=== PATIENT | female | born 1940 | race Caucasian/White ===

== ENCOUNTER 2021-06-19 19:50 | Inpatient (IN) | payer OTHER, MEDICAID, SELFPAY ==
[~2021-06-19] VITALS: Ht 165.1 cm; Wt 64.0 kg
--- NOTE | 2021-06-19 03:50 | NUR ---
PATIENT ASSISTED TO BATHROOM PATIENT ASSISTED TO BATHROOM FOR VOID WITH WALKER AND MINIMAL ASSIST. PATIENT TOLERATED THE TRIP WELL. SHE IS REPOSITIONED BACK INTO BED FOR COMFORT. CALL LIGHT PLACED WITHIN REACH. BED IS LOCKED, ALARMED, AND AT THE LOWEST LEVEL. Addendum: 06/20/21 at 0655 by Bell Smith RN NOTE INTENDED FOR DIFFERENT TIME
[2021-06-19 20:07] VITALS: BP_SYST 109
[2021-06-19] MEDS ORDERED: VALS1TAB72 PO (20:15)
[2021-06-19] MEDS ORDERED: CIPR500T5 PO (20:16)
[2021-06-19] MEDS ORDERED: ONDA-8 TL (20:16)
--- NOTE | 2021-06-19 21:40 | NUR ---
Urine specimen collected and sent to lab.
--- NOTE | 2021-06-19 21:40 | NUR ---
Pt placed to ER bed 02 and to gown. Pt c/o vomiting x 3 days with "chocolate brown" colored emesis. Pt states unable to tolerate PO intake and hasn't eaten in 3 days. Pt was seen by PMD today around 10 am r/t to present s/s and was given Zofran 4 mg, which she could not tolerate. Was instructed to go to ER if s/s worsen. Pt tolerated Zofran 8 mg ODT 1 hr COMMUNITY SERVICES COORDINATOR. No active vomiting at this time.
--- NOTE | 2021-06-19 21:41 | NUR ---
Dr. Willis at bedside.
--- NOTE | 2021-06-19 21:42 | NUR ---
# 22 gauge angiocath placed to Left wrist. Use of asceptic technique. Opsite placed over site. Blood return noted. Blood for lab drawn from site. Flushed with 10 cc of normal saline. No evidence of infiltration noted. Patient tolerated well.
[2021-06-19 21:57] LABS: BASOPHILS % (AUTO) 0.2 % (0.0-2.0); EOSINOPHILS % (AUTO) 0.2 % (0.0-4.0); HEMOGLOBIN 12.2 g/dL (12.0-16.0); LYMPHOCYTES # (AUTO) 1.1 K/uL (1.0-5.5); LYMPHOCYTES % (AUTO) 11.8 % (20.5-51.5); MEAN CORPUSCULAR HEMOGLOBIN 31 pg (27-31); MEAN CORPUSCULAR HGB CONC 34 % (32-36); MEAN CORPUSCULAR VOLUME 92 fL (79.0-98.0); MONOCYTES # (AUTO) 0.8 K/uL (0.0-1.0); MONOCYTES % (AUTO) 8.2 % (1.7-9.3); NEUTROPHILS # (AUTO) 7.5 K/uL (1.8-7.7); NEUTROPHILS % (AUTO) 79.6 % (40.0-70.0); PLATELET COUNT (AUTO) 182 K/uL (130-430); RED BLOOD CELL COUNT(AUTO) 3.92 MIL/uL (4.2-6.2); RED CELL DISTRIBUTION WIDTH 15.5 % (9.0-15.0); WHITE BLOOD COUNT (AUTO) 9.4 K/uL (4.8-10.8)
--- NOTE | 2021-06-19 22:01 | NUR ---
Pt to CT via W/C in stable condition.
--- NOTE | 2021-06-19 22:07 | NUR ---
Pt returns from CT. No needs verbalized at this time.
[2021-06-19 22:33] LABS: ANION GAP 10 (5-15); CALCIUM 9.9 mg/dL (8.4-11.0); CHLORIDE 95 mmol/L (98-107); CREATININE 1.21 mg/dL (0.55-1.30); GLUCOSE 125 mg/dL (70-99); POTASSIUM 3.8 mmol/L (3.5-5.1); SODIUM SERUM 133 mmol/L (136-145); UREA NITROGEN, BLOOD 23 mg/dL (8-21)
[2021-06-19 22:39] LABS: ALANINE AMINOTRANSFERASE 15 U/L (12-78); ALBUMIN 3.2 g/dL (3.4-4.8); ASPARTATE AMINOTRANSFERASE 22 U/L (10-37); LIPASE 62 U/L (73-393); TOTAL BILIRUBIN 0.5 mg/dL (0.0-1.0)
[2021-06-19 22:47] LABS: BILIRUBIN,URINE 1+ (NEGATIVE); BLOOD, URINE 3+ (NEGATIVE); GLUCOSE,URINE NEGATIVE (NEGATIVE); KETONES,URINE 1+ (NEGATIVE); LEUKOCYTE ESTERASE ,URINE NEGATIVE (NEGATIVE); NITRITE, URINE NEGATIVE (NEGATIVE); PH,URINE 5.5 (5.0-8.0); PROTEIN URINE 1+ (NEGATIVE); UROBILINOGEN,URINE 0.2 (0.2-1.0)
[2021-06-19] MEDS ORDERED: KETOROLAC TROMETHAMINE 15 MG VIAL IVP ONE (23:00)
--- NOTE | 2021-06-19 23:01 | NUR ---
Dr. Rolle at bedside.
[2021-06-19 23:05] LABS: COLOR,URINE YELLOW (YELLOW)
[2021-06-19 23:06] LABS: CLARITY/URINE HAZY (CLEAR)
--- NOTE | 2021-06-19 23:11 | NUR ---
Dr. Rolle at bedside to perform rectal exam, chaparoned by LINDSAY Jerez.
[2021-06-19] MEDS ORDERED: ONDANSETRON HCL 4 MG/2 ML VIAL ONE (23:24)
[2021-06-19] MEDS ORDERED: ONDANSETRON HCL 4 MG/2 ML VIAL IVP ONE (23:30)
[2021-06-19] MEDS ORDERED: NACL 0.9% 1,000 ML IV ONE (23:30)
--- NOTE | 2021-06-19 23:31 | NUR ---
Specimen collected and sent to lab for COVID-19 antigen.
[2021-06-19 23:36] LABS: BACTERIA,URINE FEW /HPF (None Seen)
[2021-06-19 23:37] LABS: CALCIUM OXALATE CRYSTALS,UR 0-10 /HPF (None Seen); MUCUS,URINE None Seen /LPF (None Seen); URINE AMORPHOUS URATE 1+ /HPF (None Seen)
[2021-06-19 23:41] LABS: FINE GRANULAR CASTS,URINE 0-10 /LPF (None Seen)
--- NOTE | 2021-06-19 23:50 | NUR ---
Dr. Montoya assessing pt.
[2021-06-20] MEDS ORDERED: ACETAMINOPHEN 650 MG SUPP.RECT RC PRN (00:15)
[2021-06-20] MEDS ORDERED: ACETAMINOPHEN 325 MG TABLET PO PRN (00:15)
[2021-06-20] MEDS ORDERED: MORPHINE 2 MG/ML INJ. SYRINGE IVP PRN (00:15)
--- NOTE | 2021-06-20 00:28 | NUR ---
X-ray at bedside.
[2021-06-20] MEDS ORDERED: VALS1TAB72 PO (00:44)
[2021-06-20] MEDS ORDERED: ALLO100T PO (00:44)
[2021-06-20] MEDS ORDERED: LIP10 PO (00:44)
[2021-06-20] MEDS ORDERED: MECL-108 PO (00:44)
--- NOTE | 2021-06-20 00:51 | NUR ---
No tele bed available at this time.
--- NOTE | 2021-06-20 01:08 | NUR ---
Patient will be admitted to care of Dr. Montoya. Admitted to Tele unit. Will go to room 119B. Belongings list completed. Complete and up to date summary report printed. SBAR report to be given at bedside with opportunity for questions.
[2021-06-20 01:25] VITALS: BP_SYST 124
--- NOTE | 2021-06-20 01:25 | NUR ---
ADMISSION: The patient, ADI WYATT, 80 y/o, F admitted by MARIE SIMEON MD, was given written information regarding hospital policies, unit procedures and contact persons. Valuables were checked and DOCUMENTED.
--- NOTE | 2021-06-20 02:30 | NUR ---
INITIAL NOTE AT INITIAL ASSESSMENT, PATIENT IS RESTING IN BED, STABLE, NO SIGNS OF RESPIRATORY DISTRESS. PATIENT VERBALIZES NO PAIN. PLAN OF CARE FOR THE EVENING IS COMMUNICATED WITH THE PATIENT AND HER SON AT BEDSIDE. PATIENT DEMONSTRATES CORRECT USAGE OF CALL LIGHT AT THIS TIME. BED IS LOCKED, ALARMED, AND AT THE LOWEST LEVEL. FALL SAFETY EDUCATION PROVIDED. FALL, SAFETY, AND RESPIRATORY PRECAUTIONS WILL BE TAKEN THROUGHOUT THE SHIFT. PATIENT UNDERSTANDS SHE WILL BE NPO AT THIS TIME.
--- NOTE | 2021-06-20 03:20 | NUR ---
CONSULTATION PAGED/CALLED Reason for Consultation: SBO Person Who was Notified:Spoke With Sadie From Dr.Mariano Gtz. Consulting Physician: Light Armored Reconnaissance Officer Specialty: General Surgery Ordering Physician:
[2021-06-20] MEDS: D5LR 1,000 ML IV SCH ×3 (03:26→20:15)
--- NOTE | 2021-06-20 03:32 | NUR ---
CONSULTATION PAGED/CALLED Reason for Consultation: ELEVATED TROP Person Who was Notified: SPOKE WITH GLORY FROM [employer] . Consulting Physician: ARA HARTLEY Magazine Supervisor Specialty: CARDIAC Ordering Physician: BLANCO HARTLEY
--- NOTE | 2021-06-20 03:55 | NUR ---
PATIENT ASSISTED TO BATHROOM PATIENT ASSISTED TO BATHROOM FOR VOID WITH WALKER AND MINIMAL ASSIST. PATIENT TOLERATED THE TRIP WELL. SHE IS REPOSITIONED BACK INTO BED FOR COMFORT. CALL LIGHT PLACED WITHIN REACH. BED IS LOCKED, ALARMED, AND AT THE LOWEST LEVEL.
[2021-06-20] MEDS ORDERED: cefTRIAXone 1 GM IVPB PREMIX 100 ML IV ONE (04:19)
--- NOTE | 2021-06-20 06:50 | NUR ---
CLOSING NOTE PATIENT SLEPT WELL THROUGHOUT THE SHIFT, NO SHORTNESS OF BREATH NOTED. SHE VERBALIZED NO EPISODES OF ABDOMINAL PAIN OR NAUSEA ALL SHIFT. AT THIS TIME, PATIENT IS RESTING IN BED, STABLE, NO SIGNS OF RESPIRATORY DISTRESS. CALL LIGHT IS WITHIN REACH. BED IS LOCKED, ALARMED, AND AT THE LOWEST LEVEL. FALL, SAFETY, AND RESPIRATORY PRECAUTIONS HAVE BEEN TAKEN THROUGHOUT THE SHIFT. WILL CONTINUE TO MONITOR UNTIL SHIFT REPORT IS GIVEN AT BEDSIDE TO AM NURSE. PATIENT HAS BEEN NPO THROUGHOUT THE SHIFT.
[2021-06-20] MEDS: ONDANSETRON HCL 4 MG/2 ML VIAL IVP PRN ×2 (07:56→15:23)
[2021-06-20 07:59] VITALS: BP_SYST 138
--- NOTE | 2021-06-20 08:56 | NUR ---
CONSULTATION PAGED/CALLED Reason for Consultation: [] SMALL BOWEL OBSTRUCTION Person Who was Notified: [] LEFT A MESSAGE IN HIS CELL Consulting Physician: [] DR LEYDA MONTAÑO Drill Press Set Up Operator Specialty: [] GEN SURGEON Ordering Physician: [] DR SIMEON
--- NOTE | 2021-06-20 09:22 | NUR ---
PUT ANOTHER CALL TO GEN SURGERY CONSULT DR MONTAÑO, RE; SBO. LEFT A VOICE MESSAGE ON HIS CELL. OFFICE PHONE IS NOT WORKING, TRIED CALLING SEVERAL TIMES.
[2021-06-20 12:00] VITALS: BP_SYST 135
[2021-06-20 16:00] VITALS: BP_SYST 128
[2021-06-20 16:48] LABS: ANION GAP 5 (5-15); BASOPHILS % (AUTO) 0.3 % (0.0-2.0); CALCIUM 8.8 mg/dL (8.4-11.0); CHLORIDE 99 mmol/L (98-107); CREATININE 1.04 mg/dL (0.55-1.30); EOSINOPHILS % (AUTO) 0.8 % (0.0-4.0); GLUCOSE 139 mg/dL (70-99); HEMATOCRIT 35.6 % (36-48); HEMOGLOBIN 11.7 g/dL (12.0-16.0); LYMPHOCYTES # (AUTO) 0.9 K/uL (1.0-5.5); LYMPHOCYTES % (AUTO) 16.6 % (20.5-51.5); MEAN CORPUSCULAR HEMOGLOBIN 31 pg (27-31); MEAN CORPUSCULAR HGB CONC 33 % (32-36); MEAN CORPUSCULAR VOLUME 93 fL (79.0-98.0); MONOCYTES # (AUTO) 0.5 K/uL (0.0-1.0); NEUTROPHILS # (AUTO) 3.9 K/uL (1.8-7.7); NEUTROPHILS % (AUTO) 72.3 % (40.0-70.0); PLATELET COUNT (AUTO) 164 K/uL (130-430); POTASSIUM 3.6 mmol/L (3.5-5.1); RED BLOOD CELL COUNT(AUTO) 3.81 MIL/uL (4.2-6.2); RED CELL DISTRIBUTION WIDTH 15.2 % (9.0-15.0); SODIUM SERUM 133 mmol/L (136-145); UREA NITROGEN, BLOOD 21 mg/dL (8-21); WHITE BLOOD COUNT (AUTO) 5.3 K/uL (4.8-10.8)
[2021-06-20 16:56] LABS: PHOSPHORUS 3.9 mg/dL (2.7-4.5)
[2021-06-20 20:00] VITALS: BP_SYST 101
--- NOTE | 2021-06-20 22:00 | NUR ---
ROUNDING NOTES Patient resting in bed - no s/s pain or distress noted. Respirations even and unlabored - head of bed elevated. IV site patent - no s/s redness, infection, or infiltration. Bed locked and in lowest position. Call light within reach - bed alarm on. Dr. Negro notifies RN to prepare consent form for surgery - Right inguinal hernia repair.
[2021-06-20] MEDS ORDERED: cefTRIAXone 1 GM VIAL ONE ×2 (22:22→22:55)
[2021-06-21] VITALS: BP_SYST 112
--- NOTE | 2021-06-21 | NUR ---
ROUNDING NOTES Patient resting in bed - no s/s pain or distress noted. Respirations even and unlabored - head of bed elevated. IV site patent - no s/s redness, infection, or infiltration. Bed locked and in lowest position. Call light within reach - bed alarm on.
[2021-06-21] MEDS: D5LR 1,000 ML IV SCH ×2 (04:10→16:06)
--- NOTE | 2021-06-21 06:28 | NUR ---
CLOSING NOTES Patient resting in bed - no s/s pain or distress noted. Respirations even and unlabored - head of bed elevated. Bed locked and in lowest position. Call light within reach - bed alarm on. IV site dislodged and leaking. Per patient and patient family, states "try again in 2 hours, give her a rest." Will notify next of shift RN.
[2021-06-21 07:18] LABS: BASOPHILS % (AUTO) 0.4 % (0.0-2.0); EOSINOPHILS # (AUTO) 0.1 K/uL (0.0-0.4); EOSINOPHILS % (AUTO) 0.8 % (0.0-4.0); HEMATOCRIT 33.3 % (36-48); LYMPHOCYTES % (AUTO) 15.9 % (20.5-51.5); MEAN CORPUSCULAR HEMOGLOBIN 31 pg (27-31); MEAN CORPUSCULAR HGB CONC 33 % (32-36); MEAN CORPUSCULAR VOLUME 93 fL (79.0-98.0); MONOCYTES # (AUTO) 0.7 K/uL (0.0-1.0); MONOCYTES % (AUTO) 11.6 % (1.7-9.3); NEUTROPHILS # (AUTO) 4.5 K/uL (1.8-7.7); NEUTROPHILS % (AUTO) 71.3 % (40.0-70.0); PLATELET COUNT (AUTO) 168 K/uL (130-430); RED BLOOD CELL COUNT(AUTO) 3.59 MIL/uL (4.2-6.2); WHITE BLOOD COUNT (AUTO) 6.3 K/uL (4.8-10.8)
--- NOTE | 2021-06-21 07:20 | NUR ---
Opening note Patient is resting in bed A&Ox4 ukrainian speaking, no complaint of pain or discomfort,IV was removed during night coordinator, will place new one. No signs or symptoms of respiratory distress. Unable to educate patient effectively due to language barrier, able to educate son at bedside, verbalized understanding. Bed is in lowest position call light within reach fall and aspiration precautions are in place. Will continue to monitor.
[2021-06-21 08:00] VITALS: BP_SYST 96
[2021-06-21 09:05] LABS: PROTHROMBIN TIME 10.5 SECS (9.5-12.5)
--- NOTE | 2021-06-21 09:18 | NUR ---
Nutrition Update Preston Scale 17 noted. Pt admitted for SBO, dehydration. Diet: NPO BMI: 23.3 kg/m2 RD to follow per nutrition care standards.
[2021-06-21 10:32] LABS: ALANINE AMINOTRANSFERASE 13 U/L (12-78); ALBUMIN 2.4 g/dL (3.4-4.8); ANION GAP 5 (5-15); ASPARTATE AMINOTRANSFERASE 17 U/L (10-37); CALCIUM 8.4 mg/dL (8.4-11.0); CHLORIDE 100 mmol/L (98-107); CREATININE 0.85 mg/dL (0.55-1.30); GLUCOSE 113 mg/dL (70-99); PHOSPHORUS 3.4 mg/dL (2.7-4.5); POTASSIUM 3.4 mmol/L (3.5-5.1); SODIUM SERUM 134 mmol/L (136-145); TOTAL BILIRUBIN 0.3 mg/dL (0.0-1.0); UREA NITROGEN, BLOOD 16 mg/dL (8-21)
[2021-06-21 11:10] LABS: HCG,QUANTITATIVE 1 mIU/ML (0-6)
[2021-06-21 11:33] LABS: CHOLESTEROL 103 mg/dL (<200); HDL CHOLESTEROL 39 mg/dL (>55); LDL CHOLESTEROL 52 mg/dL (<100); TRIGLYCERIDES 94 mg/dL (30-150)
--- NOTE | 2021-06-21 13:22 | NUR ---
IV RE-INSERTION: Complaining of pain to IV site. Restarted on LEFT WRIST 22G. Successful after 2 attempts. Resumed current IVF. Will observe for any signs of infiltration.
--- NOTE | 2021-06-21 15:30 | NUR ---
Dietitian Recommendations * Consider advance diet if/when medically appropriate (2 gm Na diet w/ Ensure Enlive BID) ÁNGELA, RD Please refer to Nutrition Assessment for details. Addendum: 06/21/21 at [address] Amended: Links added.
[2021-06-21] MEDS ORDERED: fentaNYL CITRATE/PF 100 MCG/2 ML AMP IVP PRN ×2 (15:45)
[2021-06-21] MEDS ORDERED: METOCLOPRAMIDE HCL 10 MG/2 ML VIAL IVP PRN (15:45)
[2021-06-21] MEDS ORDERED: ONDANSETRON HCL 4 MG/2 ML VIAL IVP PRN (15:45)
[2021-06-21] MEDS ORDERED: MIDAZOLAM HCL 5 MG/ML VIAL (VERSED) IV ONE (16:15)
[2021-06-21] MEDS ORDERED: SEVOFLURANE 15 MIN GAS INH ONE (16:15)
[2021-06-21] MEDS ORDERED: LR 1,000 ML IV.SOLN IV ONE (16:15)
[2021-06-21] MEDS ORDERED: NS IRRIG SOLN 1000 ML IR ONE (16:15)
[2021-06-21] MEDS ORDERED: PROPOFOL 200MG/ 20ML VIAL (DIPRIVAN) IV ONE (16:15)
[2021-06-21] MEDS ORDERED: BUPIVACAINE /EPINEPHRINE/PF 0.25% 30 ML VIAL INJ ONE (16:15)
[2021-06-21] MEDS ORDERED: CEFAZOLIN 2 GM IVPB PREMIX 50 ML IV ONE (16:15)
[2021-06-21] MEDS ORDERED: WATER FOR IRRIGATION,STERILE 1,000 ML IRRIG.SOLN IR ONE (16:15)
[2021-06-21] MEDS ORDERED: ROCURONIUM BROMIDE 10 MG/ML (ZEMURON) ONE (16:15)
[2021-06-21] MEDS ORDERED: fentaNYL CITRATE/PF 100 MCG/2 ML AMP ONE (16:15)
--- NOTE | 2021-06-21 17:00 | NUR ---
PATIENT RECEIVED PATIENT IS BACK FROM OR, IN STABLE CONDITION, VITAL SIGNS ARE DONE, WILL CONTINUE TO MONITOR. SURGICAL DRESSING IS IN PLACE, CLEAN DRY AND INTACT. WILL CONTINUE TO MONITOR.
--- NOTE | 2021-06-21 18:30 | NUR ---
Closing note Patient is resting in bed A&Ox4 english speaking, no complaint of pain or discomfort,IV was removed during night shift manager, will place new one. No signs or symptoms of respiratory distress. All needs report. Bed is in lowest position call light within reach fall and aspiration precautions are in place. Will endorse report to night shift manager.
[2021-06-21 20:00] VITALS: BP_SYST 124
[2021-06-21] MEDS ORDERED: cefTRIAXone 1 GM VIAL ONE (20:23)
[2021-06-22 01:04] VITALS: BP_SYST 122
[2021-06-22 06:23] LABS: BASOPHILS % (AUTO) 0.6 % (0.0-2.0); EOSINOPHILS # (AUTO) 0.1 K/uL (0.0-0.4); EOSINOPHILS % (AUTO) 1.3 % (0.0-4.0); HEMATOCRIT 29.4 % (36-48); HEMOGLOBIN 9.8 g/dL (12.0-16.0); LYMPHOCYTES # (AUTO) 1.1 K/uL (1.0-5.5); LYMPHOCYTES % (AUTO) 21.2 % (20.5-51.5); MEAN CORPUSCULAR HEMOGLOBIN 31 pg (27-31); MEAN CORPUSCULAR HGB CONC 33 % (32-36); MEAN CORPUSCULAR VOLUME 93 fL (79.0-98.0); MONOCYTES # (AUTO) 0.6 K/uL (0.0-1.0); NEUTROPHILS # (AUTO) 3.4 K/uL (1.8-7.7); NEUTROPHILS % (AUTO) 65.9 % (40.0-70.0); PLATELET COUNT (AUTO) 145 K/uL (130-430); RED BLOOD CELL COUNT(AUTO) 3.16 MIL/uL (4.2-6.2); RED CELL DISTRIBUTION WIDTH 14.8 % (9.0-15.0); WHITE BLOOD COUNT (AUTO) 5.2 K/uL (4.8-10.8)
[2021-06-22] MEDS: D5LR 1,000 ML IV SCH ×2 (06:54→16:36)
[2021-06-22 08:55] VITALS: BP_SYST 107
[2021-06-22 09:33] LABS: ALANINE AMINOTRANSFERASE 11 U/L (12-78); ALBUMIN 2.2 g/dL (3.4-4.8); ANION GAP 6 (5-15); ASPARTATE AMINOTRANSFERASE 15 U/L (10-37); CALCIUM 8.2 mg/dL (8.4-11.0); CHLORIDE 102 mmol/L (98-107); CREATININE 0.79 mg/dL (0.55-1.30); GLUCOSE 99 mg/dL (70-99); POTASSIUM 3.4 mmol/L (3.5-5.1); SODIUM SERUM 137 mmol/L (136-145); TOTAL BILIRUBIN 0.2 mg/dL (0.0-1.0); UREA NITROGEN, BLOOD 11 mg/dL (8-21)
[2021-06-22] MEDS: LEVOFLOXACIN IN DEXTROSE 5 % 100 ML IV SCH (09:35)
[2021-06-22 12:36] VITALS: BP_SYST 90
--- NOTE | 2021-06-22 14:12 | NUR ---
NOTES Late entry due to pt care 0730- assumed care of patient. in bed eyes open. does not appear to be in distress. denies pain at this time. patient speaks setswana, brother in law at the bedside and patient sister translating. plan of care discussed with patient. pt verbalized understanding 1100- assisted out of bed and with ambulation in the hallway with minimal assist. patient has not passed gas yet. denies nausea and vomiting and pain. Sat on the chair upon return to her room 1230- Nephew assisted patient with ambulation with minimal assist. patient still has not passed gas. denies pain, nausea or vomiting.
[2021-06-22] MEDS ORDERED: POTASSIUM CHLORIDE 20 MEQ TAB.PRT.SR PO ONE (14:30)
[2021-06-22 16:00] VITALS: BP_SYST 122
[2021-06-22] MEDS ORDERED: LIDOCAINE PATCH 5% 1 EA TP ONE (16:45)
--- NOTE | 2021-06-22 18:21 | NUR ---
CLOSING PATIENT AMBULATED IN THE HALLWAY WITH MINIMAL ASSIST WITH FAMILY. UNABLE TO PASS GAS AT THIS TIME. PATIENT REMAINED COMFORTABLE
[2021-06-22 19:00] VITALS: BP_SYST 136
--- NOTE | 2021-06-22 19:15 | NUR ---
change of shift.pt.presents s/p surgery;hernia repair.sx dsg intact absent drainage,pt.presents iv access location lt.forearm. iv fluids infusing.language barrier extant.pt.106-a is family member to assiste w translation w/in the shift.call light/telephone w/in access of the pt.
[2021-06-22 20:00] VITALS: BP_SYST 138
--- NOTE | 2021-06-22 20:00 | NUR ---
pt.assessed.v/s assessed values wnl.no c/o pain,nausea.i have apprised the pt.that snacks/beverages are available w/in the shift.106-a family member translation;no requests posited@this hour.iv access intact iv fluids infusing.pt.capable reposition self. call light/telephone w/in access of the pt.
--- NOTE | 2021-06-22 21:00 | NUR ---
2100pmedication administered:k-dur.pt.capable to ingest the po medication w/out difficulty.pt.requested jello provided. no c/o pain,nausea.call light/telephone w/in access of the pt.
[2021-06-22] MEDS: POTASSIUM CHLORIDE 20 MEQ TAB.PRT.SR PO SCH (21:41)
--- NOTE | 2021-06-22 22:00 | NUR ---
pt.assessed.pt.presents quiescent affect;calm,resting.iv access intact iv fluids infusing.no c/o pain,nausea.no requests posited@this hour.pt.capable to reposition self.106-a family member translation.call light/telephone w/in access of the pt.
--- NOTE | 2021-06-23 | NUR ---
pt.assessed.v/s assessed values wnl.no c/o pain,nausea.no requests posited@this hour.iv access intact iv fluids infusing.pt.repositioned.call light/telephone placed w/in access of the pt.
[2021-06-23 00:23] VITALS: BP_SYST 121
[2021-06-23] MEDS: D5LR 1,000 ML IV SCH (01:35)
--- NOTE | 2021-06-23 02:00 | NUR ---
pt.assessed.pt.presents quiescent affect calm,somnolent.iv access intact iv fluids infusing.per flacs pain mgx pt.absent facial grimaces/body posturing.pt.repositioned.call ight/telephone placed w/in access of the pt.
--- NOTE | 2021-06-23 04:00 | NUR ---
pt.assessed.pt.presents quiescent affect;calm,somnolent.iv access intact iv fluids infusing.per flacc pain mgx pt.absent facial grimaces/body posturing.pt.capable to reposition self.call light/telephone w/in access of the pt.
--- NOTE | 2021-06-23 06:10 | NUR ---
pt.assessed.pt.presents quiescent affect;calm,somnolent.per flacc pain mgx pt.absent facial grimaces/body posturing. iv access intact iv fluids infusing.pt.capable to reposition self.call light/telephone w/in access of the pt.
[2021-06-23 08:00] VITALS: BP_SYST 127
--- NOTE | 2021-06-23 08:00 | NUR ---
OPENING NOTES AWAKE AND ORIENTED. FAMILY AT BEDSIDE TO HELP WITH TRANSLATION. NO SHORTNESS OF BREATH ON ROOM AIR. DENIES ANY PAIN. SURGICAL DRESSING ON RIGHT LOWER ABDOMEN INTACT. IV FLUID INFUSING WELL. PLAN OF CARE EXPLAINED TO PATIENT AND FAMILY. SAFETY CHECKS DONE. CALL LIGHT WITHIN REACH. WILL MONITOR.
[2021-06-23] MEDS ORDERED: LIDOCAINE PATCH 5% 1 EA TP SCH (09:00)
[2021-06-23] MEDS: POTASSIUM CHLORIDE 20 MEQ TAB.PRT.SR PO SCH (09:32)
[2021-06-23] MEDS: LEVOFLOXACIN IN DEXTROSE 5 % 100 ML IV SCH (09:33)
[2021-06-23 09:35] LABS: BASOPHILS % (AUTO) 0.5 % (0.0-2.0); EOSINOPHILS # (AUTO) 0.1 K/uL (0.0-0.4); EOSINOPHILS % (AUTO) 1.1 % (0.0-4.0); HEMOGLOBIN 9.9 g/dL (12.0-16.0); LYMPHOCYTES % (AUTO) 19.4 % (20.5-51.5); MEAN CORPUSCULAR HEMOGLOBIN 31 pg (27-31); MEAN CORPUSCULAR HGB CONC 34 % (32-36); MEAN CORPUSCULAR VOLUME 92 fL (79.0-98.0); MONOCYTES # (AUTO) 0.6 K/uL (0.0-1.0); MONOCYTES % (AUTO) 11.7 % (1.7-9.3); NEUTROPHILS # (AUTO) 3.6 K/uL (1.8-7.7); NEUTROPHILS % (AUTO) 67.3 % (40.0-70.0); PLATELET COUNT (AUTO) 151 K/uL (130-430); RED BLOOD CELL COUNT(AUTO) 3.14 MIL/uL (4.2-6.2); RED CELL DISTRIBUTION WIDTH 14.9 % (9.0-15.0); WHITE BLOOD COUNT (AUTO) 5.4 K/uL (4.8-10.8)
--- NOTE | 2021-06-23 10:00 | NUR ---
IV INFILTRATION IV WAS NOTED TO BE LEAKING. IV INFILTRATED. IV REMOVED. NO ACTIVE BLEEDING NOTED. ATTEMPTED IV INSERTION BUT WAS UNSUCCESSFUL. PATIENT REFUSED TO HAVE IV INSERTION.
[2021-06-23 10:59] LABS: ANION GAP 5 (5-15); CALCIUM 8.1 mg/dL (8.4-11.0); CHLORIDE 102 mmol/L (98-107); CREATININE 0.63 mg/dL (0.55-1.30); GLUCOSE 96 mg/dL (70-99); POTASSIUM 3.4 mmol/L (3.5-5.1); SODIUM SERUM 136 mmol/L (136-145); THYROID STIMULATING HORMONE 3.08 uIu/mL (0.36-3.74); UREA NITROGEN, BLOOD 6 mg/dL (8-21)
[2021-06-23 11:27] VITALS: BP_SYST 136
--- NOTE | 2021-06-23 11:30 | NUR ---
CALLED DR. SIMEON CALLED DR. SIMEON AND INFORMED HIM THAT PATIENT DOES NOT WANT TO HAVE AN IV INSERTED ANYMORE. HE SAID TO DISCONTINUE LEVAQUIN. HE ALSO ORDERED TO ADVANCE PATIENT'S DIET.
[2021-06-23] MEDS ORDERED: POTASSIUM CHLORIDE 20 MEQ TAB.PRT.SR PO ONE (13:30)
[2021-06-23 14:55] LABS: TOTAL IRON BIND. CAPACITY 176 ug/dL (250-450)
[2021-06-23 15:39] VITALS: BP_SYST 129
--- NOTE | 2021-06-23 15:40 | NUR ---
CALLED DR. MONTAÑO SPOKE WITH DR. MONTAÑO. HE SAID THAT PATIENT MAY GO HOME AND TO SEE HIM IN HIS OFFICE IN 2 WEEKS.
[2021-06-23 16:13] VITALS: BP_SYST 129
--- NOTE | 2021-06-23 17:10 | NUR ---
D/C Patient Patient given medication reconciliation form and D/C instructions. Exit Care provided. Patient verbalized understanding. MD discussed with patient the results and treatment provided. Ambulatory with steady gait for discharge to home. Helped patient in scheduling her appointment with Dr. Negro. Patient in stable condition, ID band removed. Patient educated on pain management. All belongings sent with patient.
== END 2021-06-23 17:10 | disposition home or self-care (01) | DRG 350 ==
LOC: SED 19:50 → STU 06-20 00:02 → SMU 06-22 23:46
PROVIDERS: ADMIT Internal Medicine; ATTEND Internal Medicine
PROC: 0YQ70ZZ Repair Right Femoral Region, Open Approach (ICD-10-PCS; principal; 2021-06-21 15:00)
DX: K41.90 Unilateral femoral hernia, without obstruction or gangrene, not specified as recurrent (principal); E43 Unspecified severe protein-calorie malnutrition; I24.8 Other forms of acute ischemic heart disease; K41.30 Unilateral femoral hernia, with obstruction, without gangrene, not specified as recurrent; I10 Essential (primary) hypertension; M10.9 Gout, unspecified; E86.0 Dehydration; D64.9 Anemia, unspecified; M13.88 Other specified arthritis, other site; Z20.822 Contact with and (suspected) exposure to COVID-19; Z79.899 Other long term (current) drug therapy; Z85.3 Personal history of malignant neoplasm of breast; Z85.828 Personal history of other malignant neoplasm of skin; Z90.11 Acquired absence of right breast and nipple; Z90.49 Acquired absence of other specified parts of digestive tract; Z68.23 Body mass index [BMI] 23.0-23.9, adult; Z79.2 Long term (current) use of antibiotics
CPT/HCPCS: 36415; 71045; 76376; 80048; 80053; 80061; 81000; 82607; 83540; 83550; 83690; 83735; 83880; 84100; 84443; 84484; 84702; 85025; 85610-TC; 85730-TC; 86886; 86900; 86901; 87081; 87086; 93005; 93306; 94760; 96361; 96374; 96375; 99285; C1781; G0378; J0690; J0696; J1885; J1956; J2250; J2270; J2405; J2704; J3010; J3490; J7120